=== PATIENT | male | born 2005 | race Hispanic/Latino ===

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

== ENCOUNTER 2025-02-01 15:37 | Emergency (ER) | payer MEDICAID, OTHER | END 2025-02-01 16:56 | disposition home or self-care (01) | LOC: CSHERS 15:37 | DX: R10.84 Generalized abdominal pain (principal); R50.9 Fever, unspecified | CPT/HCPCS: 87428; 99284 ==